=== PATIENT | female | born 1990 | race Caucasian/White ===

== ENCOUNTER → 2021-10-13 12:29 | Outpatient (BNVA) | payer BC, SELFPAY | PROVIDERS: Family Provider Family Medicine; PCP Family Medicine; Visit Provider Clinical Nurse Specialist Adult Health | DX: R30.0 Dysuria (principal); N30.00 Acute cystitis without hematuria; H10.9 Unspecified conjunctivitis | CPT/HCPCS: 81000 ==

== ENCOUNTER 2022-03-19 08:56 | Emergency (ER) | payer BC, SELFPAY ==
[2022-03-19 09:10] VITALS: BP 132/84; PULSE 109; RESP 16; TEMP 36.6; O2SAT 99; BMI 21.9
--- NOTE | 2022-03-19 09:13 | ECG_ITS ---
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 [id number]
--- NOTE | 2022-03-19 09:14 | XRR_ITS ---
PROCEDURE INFORMATION: Exam: XR Chest Exam date and time: 03/19/2022 9:29 AM Age: 31 years old Clinical indication: Other: Rapid heart rate; Additional info: Weak/rapid heart rate TECHNIQUE: Imaging protocol: Radiologic exam of the chest. Views: 1 view. COMPARISON: CR XR chest 2V* [id number] 06/08/2016 10:32 AM FINDINGS: Lungs: Unremarkable. No consolidation. Pleural spaces: Unremarkable. No pleural effusion. No pneumothorax. Heart/Mediastinum: Unremarkable. No cardiomegaly. Bones/joints: Unremarkable. XR/XR chest 1V portable [id number] IMPRESSION: No acute findings.
[2022-03-19 09:53] VITALS: BP 119/80; BP 125/69; BP 136/80
--- NOTE | 2022-03-19 09:57 | W.ED.WEAKNES ---
HPI - Weakness General: Chief complaint: Weakness Stated complaint: high HR, weak Time Seen by Provider: 03/19/22 09:13 Source: patient Mode of arrival: ambulatory History of Present Illness: 31-year-old female presents emergency room complaining of intermittent near syncopal spells for the last month and another episode this morning her heart rate was high she felt weak like she was going to pass out she had some tunnel vision for a time. She works at a schooll and the nursing report her heart rate to be 150s. He also evidently checked a blood sugar that was normal. On arrival here her symptoms have resolved she is awake alert she still mildly tachycardic but has no other symptoms. She never did fully lose consciousness. No recent trauma or surgeries. She notes that she had difficulty in the past with intrinsically high heart rate was particularly noticeable shortly after she delivered a baby. MD Complaint: generalized weakness Onset (ago): month(s) Duration: intermittent Location: generalized Relieving factors: none Exacerbating factors: none Associated symptoms: Denies chest pain, chills, confusion, melena, decreased appetite, diaphoresis, dysuria, easy bruising, fever(s), headache(s), myalgias, nausea, rash, short of breath, syncope or vomiting Review of Systems Const: Denies: fever(s), chills or diaphoresis ENMT: Denies: throat pain, ear or mastoid pain, nasal discharge or nasal congestion Card: Denies: chest pain or syncope Resp: Denies: dyspnea, productive cough or non-productive cough GI: Denies: abdominal pain, nausea, vomiting or melena : Denies: dysuria, urinary frequency or urinary urgency Skin/Breast: Denies: rash or pruritus Neuro: Denies: headache(s) or confusion Gee/Lymph: Denies: easy bruising PFSH ED PFSH: Medical History Anxiety Asthma Eczema Rapid heart rate Mildly elevated resting heart rate Surgical History History of left salpingo-oophorectomy (10/03/12) Diagnoses: Left ovarian cyst. Performed by Dr. Nico Caldwell and Dr. Katia Mayes at [facility] in [place], [place]. Findings: 9 cm simple cyst. Family History Mother Hypertension Hyperlipidemia Cancer Ovarian cancer Grandmother Hypertension Maternal Social History Smoking and tobacco status: never smoked Alcohol intake: never Other details last substance use: Denies drug use Physical Exam Const: GENERAL APPEARANCE: cooperative and comfortable ORIENTATION/CONSCIOUSNESS: Yes awake, Yes oriented to person, Yes oriented to place and Yes oriented to time HENMT: COMMON NORMALS: normocephalic, atraumatic and hearing grossly normal bilaterally HEAD & SCALP: normocephalic and atraumatic Resp: COMMON NORMALS: normal respiratory effort, No retractions, No use of accessory muscles and clear to auscultation bilaterally AUSCULTATION: clear to auscultation bilaterally Cardio: COMMON NORMALS: regular rate, regular rhythm and No murmurs present (Cardio) RATE: regular rate RHYTHM: regular rhythm GI: COMMON NORMALS: Soft to palpation and No hepatosplenomegaly present AUSCULTATION: Yes normoactive bowel sounds PALPATION: Yes Soft to palpation, No Tenderness to palpation present (GI), No Guarding due to palpation present (GI) and Yes No hepatosplenomegaly present Extremity: COMMON NORMALS: normal to inspection, capillary refill normal, no clubbing, cyanosis or edema, no calf tenderness and no pedal edema Neuro: SENSORIUM/ORIENTATION: Yes oriented to person, Yes oriented to place and Yes oriented to time Skin: COMMON NORMALS: no rashes or lesions noted GENERAL SKIN EXAM: no rashes or lesions noted Course Vital Signs: Vital signs: Vital Signs Temperature 97.8 F 03/19/22 09:10 Pulse Rate 105 H 03/19/22 11:38 Respiratory Rate 18 03/19/22 11:38 Blood Pressure 107/78 03/19/22 11:38 Pulse Oximetry 99 03/19/22 11:38 Oxygen Delivery Me thod 03/19/22 09:10 MDM - Weakness Medical Decision Making Labs imaging and EKG reviewed. Patient reports she does have some mild tachycardia. Overall no significant abnormalities found. She is feeling better, discharge patient home. Suspect she had a syncopal episode follow-up with Dr. Osuna. Medical Records I reviewed the patient's medical records. Lab Data I reviewed the patient's lab results. 03/19/22 09:54 03/19/22 09:54 Radiology Impressions Chest X-Ray 03/19/22 09:14 IMPRESSION: No acute findings. Laboratory Results WBC 7.3 10^3/uL (4.0-10.0) 03/19/22 09:54 RBC 4.36 10^6/uL (4.1-5.3) 03/19/22 09:54 Hgb 13.4 g/dL (11.5-15.3) 03/19/22 09:54 Hct 40.2 % (37.0-47.0) 03/19/22 09:54 MCV 92.2 fl (81-99) 03/19/22 09:54 MCH 30.7 pg (28.0-34.0) 03/19/22 09:54 MCHC 33.3 g/dL (30.0-36.0) 03/19/22 09:54 RDW 11.5 % (12.1-15.1) L 03/19/22 09:54 Plt Count 264 10^3/cmm (130-400) 03/19/22 09:54 MPV 10.8 fL (7.4-10.4) H 03/19/22 09:54 Neut % (Auto) 64.7 % 03/19/22 09:54 Lymph % (Auto) 26.0 % 03/19/22 09:54 [place] % (Auto) 6.1 % 03/19/22 09:54 Eos % (Auto) 2.2 % 03/19/22 09:54 Baso % (Auto) 0.7 % 03/19/22 09:54 Neut # (Auto) 4.71 10^3/uL (1.8-7.7) 03/19/22 09:54 Lymph # (Auto) 1.9 10^3/uL (0.8-4.8) 03/19/22 09:54 [place] # (Auto) 0.4 10^3/uL (0.2-0.9) 03/19/22 09:54 Eos # (Auto) 0.2 10^3/uL (0.0-0.8) 03/19/22 09:54 Baso # (Auto) 0.1 10^3/uL (0.0-0.1) 03/19/22 09:54 Nucleated RBC % (auto) 0 % 03/19/22 09:54 Nucleated RBCs # 0.0 /100WBC 03/19/22 09:54 Sodium 131 mmol/L (136-145) L 03/19/22 09:54 Potassium 3.4 mmol/L (3.5-5.1) L 03/19/22 09:54 Chloride 97 mmol/L (98-107) L 03/19/22 09:54 Carbon Dioxide 22 mmol/L (22-29) 03/19/22 09:54 Anion Gap 15.4 (5-19) 03/19/22 09:54 BUN 11 mg/dL (6-20) 03/19/22 09:54 Creatinine 0.5 mg/dL (0.5-0.9) 03/19/22 09:54 GFR Calculation 145.9 mL/min (90-130) H 03/19/22 09:54 Glucose 101 mg/dL (65-115) 03/19/22 09:54 Calculated Osmolality 272 mOsm/kg (285-295) L 03/19/22 09:54 Calcium 9.1 mg/dL (8.5-10.5) 03/19/22 09:54 Total Bilirubin 0.3 mg/dL (0.15-1.2) 03/19/22 09:54 AST 16 U/L (0-32) 03/19/22 09:54 ALT 10 U/L (0-33) 03/19/22 09:54 Alkaline Phosphatase 64 U/L (35-105) 03/19/22 09:54 Total Protein 7.8 g/dL (6.6-8.7) 03/19/22 09:54 Albumin 4.5 g/dL (3.5-5.2) 03/19/22 09:54 Globulin 3.3 g/dL (1.3-4.6) 03/19/22 09:54 HCG, Qual Negative (Negative) 03/19/22 10:30 Urine Color Yellow (Yellow) 03/19/22 10:30 Urine Appearance Clear (CLEAR) 03/19/22 10:30 Urine pH 6 (5-7) 03/19/22 10:30 Ur Specific [place] 1.015 (1.005-1.030) 03/19/22 10:30 Urine Protein Neg (Negative) 03/19/22 10:30 Urine Glucose (UA) Norm (Normal) 03/19/22 10:30 Urine Ketones Negative (Negative) 03/19/22 10:30 Urine Blood Neg (Negative) 03/19/22 10:30 Urine Nitrate Negative (Negative) 03/19/22 10:30 Urine Bilirubin Neg (Negative) 03/19/22 10:30 Urine Urobilinogen Neg mg/dL (Negative) 03/19/22 10:30 Ur Leukocyte Esterase Negative (Negative) 03/19/22 10:30 Discharge Plan Discharge Patient Disposition: Home Clinical Impression: Near syncope, Tachycardia Condition: Stable Prescriptions: No Action Slynd 4 mg (28) tablet 4 mg PO DAILY Discharge Orders: Discharge ED (Routine); Ordered 03/19/22 Ordered By: Anatoly Cornell Referrals: Tony Marques DO [Primary Care Provider] - Patient Instructions: Opioid Safety, Pain Management Coding Level of Care Code ED Sports Reporter for Chg Fwd Exam Detailed
[2022-03-19 10:01] LABS: Basophils # 0.1 10^3/uL (0.0-0.1); Basophils % 0.7 %; Eosinophils # 0.2 10^3/uL (0.0-0.8); Eosinophils % 2.2 %; Hematocrit 40.2 % (37.0-47.0); Hemoglobin 13.4 g/dL (11.5-15.3); Lymphocytes # 1.9 10^3/uL (0.8-4.8); Mean Corpuscular HGB Conc 33.3 g/dL (30.0-36.0); Mean Corpuscular Hemoglobin 30.7 pg (28.0-34.0); Mean Corpuscular Volume 92.2 fl (81-99); Mean Platelet Volume 10.8 fL (7.4-10.4); Monocytes # 0.4 10^3/uL (0.2-0.9); Monocytes % 6.1 %; Neutrophils # 4.71 10^3/uL (1.8-7.7); Neutrophils % 64.7 %; Nucleated Red Blood Cells % 0 %; Platelet Count 264 10^3/cmm (130-400); Red Blood Count 4.36 10^6/uL (4.1-5.3); Red Cell Distribution Width 11.5 % (12.1-15.1); White Blood Count 7.3 10^3/uL (4.0-10.0)
[2022-03-19 10:22] LABS: Alanine Aminotransferase 10 U/L (0-33); Albumin Level 4.5 g/dL (3.5-5.2); Alkaline Phosphatase 64 U/L (35-105); Anion Gap 15.4 (5-19); Aspartate Amino Transferase 16 U/L (0-32); Blood Urea Nitrogen 11 mg/dL (6-20); Calcium 9.1 mg/dL (8.5-10.5); Carbon Dioxide 22 mmol/L (22-29); Chloride 97 mmol/L (98-107); Globulin 3.3 g/dL (1.3-4.6); Glomerular Filtration Rate 145.9 mL/min (90-130); Glucose 101 mg/dL (65-115); Osmolality Calculated 272 mOsm/kg (285-295); Potassium 3.4 mmol/L (3.5-5.1); Sodium 131 mmol/L (136-145); Total Bilirubin 0.3 mg/dL (0.15-1.2); Total Protein 7.8 g/dL (6.6-8.7)
[2022-03-19 10:38] LABS: Add Urine Microscopic? NO; Charge for UA Resulting for Rev
[2022-03-19 10:40] LABS: Bilirubin Urine Neg (Negative); Blood Urine Neg (Negative); Glucose Urine UA Norm (Normal); Ketones Urine Negative (Negative); Leukocyte Esterase Urine Negative (Negative); Nitrate Urine Negative (Negative); Protein Urine Neg (Negative); Specific Gravity, Urine 1.015 (1.005-1.030); Urine Appearance Clear (CLEAR); Urine Color Yellow (Yellow); Urobilinogen Urine Neg (Negative); pH Urine 6 (5-7)
[2022-03-19 11:35] LABS: HCG Qualitative Urine. Negative (Negative)
[2022-03-19 11:38] VITALS: BP 107/78; PULSE 105; RESP 18; O2SAT 99
== END 2022-03-19 11:38 | disposition home or self-care (01) ==
PROVIDERS: Emergency Provider Family Medicine; PCP Family Medicine
DX: R55 Syncope and collapse (principal); R00.0 Tachycardia, unspecified
CPT/HCPCS: 36415; 71045; 80053; 81003; 81025; 85025; 93005; 99285